=== PATIENT | female | born 1945 | race Two or more races ===

== ENCOUNTER 2022-05-02 16:34 | Emergency (ER) | payer MEDICARE, MEDICAID ==
[~2022-05-02] VITALS: Ht 167.6 cm; Wt 100.0 kg
[2022-05-02 16:36] VITALS: BP 138/87
--- NOTE | 2022-05-02 16:46 | NUR ---
PHYLICIA-A-ABIDA WOODS ETA 1800
== END 2022-05-02 18:24 | disposition home or self-care (01) ==
LOC: ER 16:34
DX: F32.A Depression, unspecified (principal); F41.9 Anxiety disorder, unspecified; Z86.73 Personal history of transient ischemic attack (TIA), and cerebral infarction without residual deficits; Z88.8 Allergy status to other drugs, medicaments and biological substances
CPT/HCPCS: 99283